=== PATIENT | male | born 1995 | race Caucasian/White ===

== ENCOUNTER 2018-10-03 09:08 | Emergency (ER) | payer BC ==
[2018-10-03] MEDS ORDERED: Bupivacaine PF 0.5% 30 ML VIAL ONE (09:18)
[2018-10-03] MEDS ORDERED: Adacel (T-DAP) 0.5 ML SYRINGE ONE (09:19)
[2018-10-03] MEDS ORDERED: Bacitracin Zinc 1 Packet ONE (10:18)
== END 2018-10-03 10:30 | disposition home or self-care (01) ==
LOC: MADERS 09:08
DX: S61.211A Laceration without foreign body of left index finger without damage to nail, initial encounter (principal); F17.220 Nicotine dependence, chewing tobacco, uncomplicated; W26.0XXA Contact with knife, initial encounter
CPT/HCPCS: 12002; 90471; 90715; Q4049; S0020